=== PATIENT | female | born 1930 | race Caucasian/White ===

== ENCOUNTER 2017-01-13 11:40 | Emergency (ER) | payer OTHER ==
--- NOTE | 2017-01-13 12:02 | EDPHY ---
H & P Stated Complaint: CONCERNED ABOUT A UTI?? Time Seen by Provider: 01/13/17 11:58 - Personal History Current Tetanus/Diphtheria Vaccine: Unsure Current Tetanus Diphtheria and Acellular Pertussis (TDAP): Unsure Tetanus Vaccine Date: unsure - Medical/Surgical History Hx Asthma: No Hx Chronic Respiratory Disease: No Hx Diabetes: No Hx Cardiac Disease: No Hx Renal Disease: No Hx Cirrhosis: No Hx Alcoholism: No Hx HIV/AIDS: No Hx Splenectomy or Spleen Trauma: No Other PMH: DENIES - Social History Smoking Status: Never smoked Constitutional: Initial Vital Signs Temperature (C) 37.1 C 01/13/17 11:40 Heart Rate 81 01/13/17 11:40 Respiratory Rate 14 01/13/17 11:40 Blood Pressure 125/70 H 01/13/17 11:40 O2 Sat (%) 92 01/13/17 11:40 O2 Delivery Mode Room Air Allergies/Adverse Reactions: No Known Allergies Allergy (Verified 06/04/13 18:56) Home Medications: Medication Instructions Recorded Acetaminophen [Tylenol Tablet] 500 - 1,000 mg PO DAILY PRN 06/05/13 Calcium Carbonate [Oyster Shell 500 mg PO BID 06/05/13 Calcium 500 mg (OTC)] Calcium Carbonate [Tums 500MG 1,000 mg PO DAILY PRN 06/05/13 (OTC)] Complete By Pharmacy 06/05/13 Multivitamins [Tab-A-Edgar] 1 each PO DAILY 06/05/13 Naproxen Sodium [Aleve] 220 mg PO HS PRN 06/05/13 Risedronate Sodium [Actonel] 35 mg PO MERIDA@0700 06/05/13 Medical Decision Making ED Course/Re-evaluation: CHIEF COMPLAINT: HISTORY OF PRESENT ILLNESS: must have 4 elements: Location, Quality, Severity , Duration, Timing, Context, Modifying Factors, Associated Signs and Symptoms REVIEW OF SYSTEMS: A 10 point review of systems was performed and is negative with the exception of the elements mentioned in the history of present illness. PHYSICAL EXAM: HR, BP, O2 Sat, RR. Temp noted General Appearance: Alert, well hydrated, appropriate, and non-toxic appearing. Head: Atraumatic without scalp tenderness or obvious injury Eyes: Pupils equal, round, reactive to light and accommodation, EOMI, no trauma , no injection. Ears: Clear bilaterally, no perforation, normal landmarks Nose: Atraumatic, no rhinorrhea, clear. Throat: There is no erythema or exudates, no lesions, normal tonsils, mucus membranes moist. Neck: Supple, 2+ carotid upstroke, nontender, no lymphadenopathy. Respiratory: No retractions, no distress, no wheezes, and no accessory muscle use. Lungs are clear to auscultation bilaterally. Cardiovascular: Regular rate and rhythm, no murmurs, rubs, or gallops. Bilateral carotid, radial, dorsalis pedis, and posterior tibial pulses intact. Good capillary refill all extremities. Gastrointestinal: Abdomen is soft, nontender, non-distended, no masses, no rebound, no guarding, no peritoneal signs. Musculoskeletal: Normal active ROM of all extremities, atraumatic. Neurological: Alert, appropriate, and interactive. The patient has normal DTRs and non-focal cranial nerves, motor, sensory, and cerebellar exam. Skin: No rashes, good turgor, no nodules on palpation. Past medical history: Past surgical history: Family history: Social history: DIAGNOSTICS/PROCEDURES/CRITICAL CARE TIME: DIFFERENTIAL DIAGNOSIS: MEDICAL DECISION MAKING: Departure - Departure Referrals: NONE *PRIMARY CARE P,. [Primary Care Provider] - As per Instructions
--- NOTE | 2017-01-13 12:13 | EDPHY ---
H & P Stated Complaint: CONCERNED ABOUT A UTI?? Time Seen by Provider: 01/13/17 11:58 - Personal History Current Tetanus/Diphtheria Vaccine: Unsure Current Tetanus Diphtheria and Acellular Pertussis (TDAP): Unsure Tetanus Vaccine Date: unsure - Medical/Surgical History Hx Asthma: No Hx Chronic Respiratory Disease: No Hx Diabetes: No Hx Cardiac Disease: No Hx Renal Disease: No Hx Cirrhosis: No Hx Alcoholism: No Hx HIV/AIDS: No Hx Splenectomy or Spleen Trauma: No Other PMH: DENIES - Social History Smoking Status: Never smoked Constitutional: Initial Vital Signs Temperature (C) 37.1 C 01/13/17 11:40 Heart Rate 81 01/13/17 11:40 Respiratory Rate 14 01/13/17 11:40 Blood Pressure 125/70 H 01/13/17 11:40 O2 Sat (%) 92 01/13/17 11:40 O2 Delivery Mode Room Air Allergies/Adverse Reactions: No Known Allergies Allergy (Verified 06/04/13 18:56) Home Medications: Medication Instructions Recorded Acetaminophen [Tylenol Tablet] 500 - 1,000 mg PO DAILY PRN 06/05/13 Calcium Carbonate [Oyster Shell 500 mg PO BID 06/05/13 Calcium 500 mg (OTC)] Calcium Carbonate [Tums 500MG 1,000 mg PO DAILY PRN 06/05/13 (OTC)] Complete By Pharmacy 06/05/13 Multivitamins [Tab-A-Edgar] 1 each PO DAILY 06/05/13 Naproxen Sodium [Aleve] 220 mg PO HS PRN 06/05/13 Risedronate Sodium [Actonel] 35 mg PO MERIDA@0700 06/05/13 Cephalexin [Keflex (RX)] 500 mg PO TID #30 cap 01/13/17 Medical Decision Making ED Course/Re-evaluation: CHIEF COMPLAINT: Bowel incontinence HISTORY OF PRESENT ILLNESS: The patient is an 86 y/o female arriving with her family member after an episode of bowel incontinence yesterday. Her family member states, "usually when that happens she has a UTI." The patient denies dysuria, abdominal pain, polyuria, or other complaints. She denies any pertinent medical history. Further history is limited as neither the patient nor her family member are able to answer many questions. REVIEW OF SYSTEMS: Limited as patient is a poor historian. PHYSICAL EXAM: General Appearance: Alert, well hydrated, appropriate, and non-toxic appearing. Head: Atraumatic without scalp tenderness or obvious injury Eyes: Pupils equal, round, reactive to light and accommodation, EOMI, no trauma , no injection. Ears: Clear bilaterally, no perforation, normal landmarks Nose: Atraumatic, no rhinorrhea, clear. Throat: There is no erythema or exudates, no lesions, normal tonsils, mucus membranes moist. Neck: Supple, non-tender, no lymphadenopathy. Respiratory: No retractions, no distress, no wheezes, and no accessory muscle use. Lungs are clear to auscultation bilaterally. Cardiovascular: Regular rate and rhythm, no murmurs, rubs, or gallops. Good capillary refill all extremities. Gastrointestinal: Abdomen is soft, non-tender, non-distended, no masses, no rebound, no guarding, no peritoneal signs. Musculoskeletal: Normal active ROM of all extremities, atraumatic. Neurological: Alert, appropriate, and interactive. The patient has normal DTRs and non-focal cranial nerves, motor, sensory, and cerebellar exam. Skin: No rashes, good turgor, no nodules on palpation. PAST MEDICAL HISTORY: Denies PAST SURGICAL HISTORY: Denies SOCIAL HISTORY: Family member at bedside. DIFFERENTIAL DIAGNOSIS: The differential diagnosis for the patient's incontinence included but was not limited to incontinence, urinary tract infection, viral syndrome, and sepsis. MEDICAL DECISION MAKING: This is an 86 y/o female who presents today for evaluation of a possible UTI after an episode of bowel incontinence yesterday. She denies any symptoms or other complaints. Plan for urine dip. Urine dip indicates UTI. Patient will be discharged on Keflex with referral to PCP if needed. - Data Points Laboratory Results: 01/13/17 12:30 Urine Color Pending Urine Appearance Pending Urine pH Pending Ur Specific [place] Pending Urine Protein Pending Urine Ketones Pending Urine Blood Pending Urine Nitrate Pending Urine Bilirubin Pending Urine Urobilinogen Pending Ur Leukocyte Esterase Pending Ur Culture Indicated? Pending Urine Glucose Pending Departure - Departure Disposition: Home, Routine, Self-Care Clinical Impression: Urinary tract infection Qualifiers: Urinary tract infection type: site unspecified Hematuria presence: without hematuria Qualified Code(s): N39.0 - Urinary tract infection, site not specified Condition: Good Instructions: Cephalexin (By mouth), Urinary Tract Infection in Women (ED) Additional Instructions: 1. Take Keflex as prescribed for UTI. Be sure to complete the entire prescription. 2. Follow up with your primary care provider for symptoms not improved over the next week. Referrals: Cuong Fitch MD [Medical Doctor] - As per Instructions Prescriptions: Cephalexin [Keflex (RX)] 500 mg PO TID #30 cap Report Scribed for: Lanre Anton Report Scribed by: Sola Black Date of Report: 01/13/17 Time of Report: 12:17
[2017-01-13] MEDS ORDERED: CEPHALEXIN 500 MG CAP PO ONE (12:39)
[2017-01-13 13:25] LABS: COLOR YELLOW; LEUKOCYTE ESTERASE,URINE 2+ (NEGATIVE); NITRITE,URINE NEGATIVE (NEGATIVE)
[2017-01-13 13:36] VITALS: BP 114/72; PULSE 70; RESP 16; TEMP 97.3; O2SAT 98
[2017-01-13 13:47] LABS: BACTERIA TRACE /hpf (NONE SEEN); MUCUS TRACE /lpf (NONE-1+)
== END 2017-01-13 13:36 | disposition home or self-care (01) ==
DX: N39.0 Urinary tract infection, site not specified (principal); B96.89 Other specified bacterial agents as the cause of diseases classified elsewhere

== ENCOUNTER 2017-09-08 19:47 | Emergency (ER) | payer OTHER ==
--- NOTE | 2017-09-08 19:53 | EDPHY ---
HPI/HX/ROS/PE/MDM Narrative: CHIEF COMPLAINT: Fall HPI: The patient is an 87 y/o female with a history of atherosclerosis, osteoporosis, and memory loss arriving via EMS after a fall. She lives in assisted living and this evening a care provider noticed a large bump on her head and assumed she fell recently. She has no memory of the fall. She denies pain or any other associated symptoms. REVIEW OF SYSTEMS: Aside from elements discussed in the HPI, a comprehensive 10-point review of systems was reviewed and is negative. PMH: Atherosclerosis, osteoporosis, and memory loss SOCIAL HISTORY: Lives in assisted living, lives in [place], retired PHYSICAL EXAM: General:Patient is alert, in no acute distress. Head: Atraumatic. Shunt palpable in right parietal scalp. ENT:Eyes are normal to inspection. ENT inspection normal. Neck: Normal inspection. Full range of motion. Respiratory:No respiratory distress. Breath sounds normal bilaterally. Cardiovascular: Regular rate and rhythm. Strong peripheral pulses. Normal cap refill. Abdomen:The abdomen is nontender to palpation. There are no peritoneal signs. There are normal bowel sounds. Back: Normal to inspection. No tenderness to palpation. Skin: Normal color. No rash. Warm and dry. Extremities: Normal appearance. Full range of motion. Neuro: Normal motor function. Normal sensory function. ED Course: Study: CT of the head and neck Indication: Fall Results: CT scan of the head and neck was obtained. The results of the study are : normal The study was read by the radiologist, Dr. Saldana. I viewed the images myself on the PACS system. I reassessed the patient and informed her of the results of her work-up. She would like to return home and I agree. Follow-up instructions and return precautions given. MDM: This patient presents with report of possible fall. I see no signs of trauma on her and she is asymptomatic. Screening labs as well as CTH and CTCsp are negative. I think the patient is safe for discharge home. - Data Points Imaging Results: Imaging Impressions Cervical Spine CT 09/08/17 19:51 Impression: 1. No acute posttraumatic abnormality identified. If there is persistent pain or neurologic deficit, consider MRI and/or flexion and extension views, if clinically indicated. 2. Multilevel degenerative change and spondylolistheses, as above. Findings discussed with García Garcia MD on September 08, [address] 09/08/17 19:51 Impression: 1. No acute intracranial findings. 2. Additional findings, as above. Findings discussed with García Garcia MD 09/08/2017 at 20:32. Imaging: Discussed imaging studies w/ call center specialist Radiologist, I viewed and interpreted images myself Laboratory Results: Laboratory Results 09/08/17 20:20 09/08/17 20:20 09/08/17 09/08/17 20:20 20:20 WBC 7.62 10^3/uL 10^3/uL (3.80-9.50) RBC 4.32 10^6/uL 10^6/uL (4.18-5.33) Hgb 13.9 g/dL g/dL (12.6-16.3) Hct 40.9 % % (38.0-47.0) MCV 94.7 fL fL (81.5-99.8) MCH 32.2 pg pg (27.9-34.1) MCHC 34.0 g/dL g/dL (32.4-36.7) RDW 14.6 % % (11.5-15.2) Plt Count 222 10^3/uL 10^3/uL (150-400) MPV 10.5 fL fL (8.7-11.7) Neut % (Auto) 54.0 % % (39.3-74.2) Lymph % (Auto) 24.5 % % (15.0-45.0) [place] % (Auto) 14.0 % H % (4.5-13.0) Eos % (Auto) 5.5 % % (0.6-7.6) Baso % (Auto) 1.6 % % (0.3-1.7) Nucleat RBC Rel Count 0.0 % % (0.0-0.2) Absolute Neuts (auto) 4.11 10^3/uL 10^3/uL (1.70-6.50) Absolute Lymphs (auto) 1.87 10^3/uL 10^3/uL (1.00-3.00) Absolute Monos (auto) 1.07 10^3/uL H 10^3/uL (0.30-0.80) Absolute Eos (auto) 0.42 10^3/uL H 10^3/uL (0.03-0.40) Absolute Basos (auto) 0.12 10^3/uL H 10^3/uL (0.02-0.10) Absolute Nucleated RBC 0.00 10^3/uL 10^3/uL (0-0.01) Immature Gran % 0.4 % % (0.0-1.1) Immature Gran # 0.03 10^3/uL 10^3/uL (0.00-0.10) Sodium 140 mEq/L mEq/L (134-144) Potassium 4.3 mEq/L mEq/L (3.5-5.2) Chloride 104 mEq/L mEq/L (97-110) Carbon Dioxide 26 mEq/l mEq/l (22-31) Anion Gap 10 mEq/L mEq/L (8-16) BUN 17 mg/dL mg/dL (7-23) Creatinine 1.0 mg/dL mg/dL (0.6-1.0) Estimated GFR 52 Glucose 92 mg/dL mg/dL (70-100) Calcium 8.9 mg/dL mg/dL (8.5-10.4) Troponin I < 0.012 ng/mL ng/mL (0.000-0.034) General Initial Vital Signs: Initial Vital Signs Temperature (C) 36.6 C 09/08/17 19:59 Heart Rate 70 09/08/17 19:59 Respiratory Rate 17 09/08/17 19:59 Blood Pressure 165/95 H 09/08/17 19:59 O2 Sat (%) 93 09/08/17 19:59 O2 Delivery Mode Room Air Allergies/Adverse Reactions: No Known Allergies Allergy (Verified 09/08/17 20:01) Home Medications: Medication Instructions Recorded NK [No Known Home Meds] 09/08/17 Departure - Departure Disposition: Home, Routine, Self-Care Clinical Impression: Fall Condition: Good Instructions: Fall Prevention for Older Adults (ED), Fall Prevention (ED) Additional Instructions: 1. Follow-up with your primary care provider for unimproved symptoms in 2-3 days. 2. Return to the ED for worsening of condition. Referrals: Patient,NotPresent [Unknown] - As per Instructions Junior Kwok MD [Medical Doctor] - As per Instructions Report Scribed for: García Garcia Report Scribed by: Kim Morales Date of Report: 09/08/17 Time of Report: 19:54 Physician Review and Approval Statement: Portions of this note were transcribed by an ED scribe. I personally performed the history, physical exam, and medical decision making; and confirm the accuracy of the information in the transcribed note.
[2017-09-08 20:31] LABS: PLATELET COUNT 222 10^3/uL (150-400)
[2017-09-08 21:30] VITALS: BP 160/87; PULSE 61; RESP 16; TEMP 98.2; O2SAT 94
== END 2017-09-08 22:38 | disposition home or self-care (01) ==
LOC: EDUNIT#
DX: Z04.3 Encounter for examination and observation following other accident (principal); W18.39XA Other fall on same level, initial encounter